=== PATIENT | male | born 1980 | race Caucasian/White ===

== ENCOUNTER 2017-08-16 19:27 | Emergency (ER) | payer SELFPAY ==
[~2017-08-16] VITALS: Ht 185.4 cm; Wt 116.3 kg
[~2017-08-16 19:27] MED LIST: MOTRIN800 MG PO; VALIUM5 MG PO
[2017-08-16] MEDS ORDERED: ROBITUSSIN AC,T10 ML PO (19:43)
[2017-08-16] MEDS ORDERED: VENTOLIN HFA18 GM IH (19:43)
[2017-08-16] MEDS ORDERED: LOSARTAN POTASS50 MG PO (20:05)
[2017-08-16] MEDS ORDERED: VENLAFAXINE HC150 M1 PO (20:06)
[2017-08-16] MEDS ORDERED: METOPROLOL SUCC50 MG PO (20:06)
[2017-08-16] MEDS ORDERED: AMLODIPINE BESYL5 MG PO (20:07)
[2017-08-16 20:30] VITALS: BP 153/105
== END 2017-08-16 20:32 | disposition home or self-care (01) ==
LOC: EME 19:27
DX: J18.0 Bronchopneumonia, unspecified organism (principal); R09.81 Nasal congestion; J02.9 Acute pharyngitis, unspecified; H92.09 Otalgia, unspecified ear; I10 Essential (primary) hypertension; F17.200 Nicotine dependence, unspecified, uncomplicated
CPT/HCPCS: 99281; 99284; J1100

== ENCOUNTER 2017-10-12 21:49 | Emergency (ER) | payer OTHER ==
[~2017-10-12] VITALS: Ht 185.4 cm; Wt 109.9 kg
[~2017-10-12 21:49] MED LIST changes: +AMLODIPINE BESYL5 MG PO; +LOSARTAN POTASS50 MG PO; +METOPROLOL SUCC50 MG PO; +ROBITUSSIN AC,T10 ML PO; +VENLAFAXINE HC150 M1 PO; +VENTOLIN HFA18 GM IH
[2017-10-12] MEDS ORDERED: NORCO 5/3251 TABLET PO (22:58)
[2017-10-12] MEDS ORDERED: FLEXERIL10 MG PO (22:58)
[2017-10-12 23:12] VITALS: BP 145/90
== END 2017-10-12 23:13 | disposition home or self-care (01) ==
LOC: EME 21:49
DX: M62.830 Muscle spasm of back (principal)
CPT/HCPCS: 99281; 99284

== ENCOUNTER 2018-07-21 04:17 | Inpatient (IN) | payer OTHER ==
[~2018-07-21] VITALS: Ht 185.4 cm; Wt 109.3 kg
[~2018-07-21 04:17] MED LIST changes: +COZAAR50 MG PO; +FLEXERIL10 MG PO; -LOSARTAN POTASS50 MG PO; -METOPROLOL SUCC50 MG PO; +NORCO 5/3251 TABLET PO; +TOPROL XL50 MG PO
[2018-07-21 05:01] LABS: PTT 29.1 SEC (25-37)
[2018-07-21 05:03] LABS: ALBUMIN 4.4 g/dL (3.2-4.8); CHLORIDE 102 mEq/L (99-109); POTASSIUM 3.8 mEq/L (3.7-5.4); SODIUM 138 mEq/L (136-147)
[2018-07-21 05:05] LABS: GLUCOSE 95 mg/dL (70-99)
[2018-07-21 05:07] LABS: TOTAL BILIRUBIN 2.3 mg/dL (0.0-1.0)
[2018-07-21 05:08] LABS: ALKALINE PHOSPHATASE 298 IU/L (3-129); HEMATOCRIT 47.2 % (38.0-50.0); HEMOGLOBIN 16.2 G/DL (12.5-16.6); MCH 28.9 PG (29.0-34.0); MCHC 34.3 G/DL (30.0-36.0); MCV 84.1 FL (86-99); PLATELET COUNT 269 K/uL (156-360); RBC DIS.WIDTH-SD 39.8 % (39-53); RED BLOOD COUNT 5.61 M/uL (4.00-5.50); WHITE BLOOD COUNT 7.9 K/uL (4.1-10.2)
[2018-07-21 05:09] LABS: CREATININE 0.9 mg/dL (0.6-1.3); GFR ESTIMATE (CALCULATED) > 59 mL/min/ (58.99-99999); INTER. NORMALIZED RATIO 0.9
[2018-07-21 05:10] LABS: AST (GOT) 524 IU/L (2-34); UREA NITROGEN (BUN) 15 mg/dL (9-23)
[2018-07-21 05:12] LABS: ALT (GPT) 651 IU/L (3-49)
[2018-07-21 05:18] LABS: TROP-I INTERPRETATION NEGATIVE; TROPONIN-I < 0.01 ng/mL (0.0-0.30)
[2018-07-21 08:36] LABS: TROP-I INTERPRETATION NEGATIVE; TROPONIN-I < 0.01 ng/mL (0.0-0.30)
[2018-07-21 08:55] LABS: LIPASE 222 U/L (1.0-51.0)
[2018-07-21 09:21] LABS: ACETAMINOPHEN (TYLENOL) < 10 mcg/mL (10-30)
[2018-07-21 09:41] VITALS: BP 113/64; BP 13/64
[2018-07-21 10:00] LABS: TRIGLYCERIDES 75 MG/DL (Normal: <150)
[2018-07-21 10:14] LABS: C-REACTIVE PROTEIN 16.1 MG/L (0-10)
[2018-07-21] MEDS ORDERED: HYDROCHLOROTHIA25 MG PO (10:16)
[2018-07-21 10:20] LABS: HEPATITIS B SURFACE ANTIGEN Nonreactive; HEPATITIS C ANTIBODY Nonreactive
[2018-07-21 10:21] LABS: ANTI-HEPATITIS A VIRUS (IGM) Nonreactive
[2018-07-21 10:22] LABS: ANTI-HEPATITIS B CORE (IGM) Nonreactive
[2018-07-21 11:13] VITALS: BP 120/73
[2018-07-21] MEDS ORDERED: ADVIL200 M1 PO (11:53)
[2018-07-21] MEDS ORDERED: FLONASE16 G1 BOTH NARES (11:54)
[2018-07-21] MEDS ORDERED: NYQUIL PO (11:55)
[2018-07-21 14:14] LABS: TROP-I INTERPRETATION NEGATIVE; TROPONIN-I < 0.01 ng/mL (0.0-0.30)
[2018-07-21 15:57] VITALS: BP 125/81
[2018-07-21 18:26] LABS: BENZODIAZEPINES, URINE SCREEN Negative (200 ng/mL)
[2018-07-21 20:44] VITALS: BP 135/73
[2018-07-22] VITALS (7 sets, daily range): BP systolic 129–148; BP diastolic 55–82
[2018-07-22 06:35] LABS: INTER. NORMALIZED RATIO 1.1
[2018-07-22 06:38] LABS: PTT 30.6 SEC (25-37)
[2018-07-22 06:56] LABS: BASOPHIL (%) 0.9 % (0-1); EOSINOPHIL (%) 15.2 % (0-5); EOSINOPHIL COUNT 0.7 K/uL (0-0.3); HEMATOCRIT 43.2 % (38.0-50.0); IMMATURE GRANULOCYTE (%) 0.2 % (0.0-0.7); LYMPHOCYTE (%) 32.5 % (15-42); LYMPHOCYTE COUNT 1.5 K/uL (1.0-2.8); MCH 28.1 PG (29.0-34.0); MCHC 32.9 G/DL (30.0-36.0); MCV 85.5 FL (86-99); MONOCYTE (%) 10.3 % (3-12); MONOCYTE COUNT 0.5 K/uL (0-0.8); NEUTROPHIL (%) 40.9 % (45-76); NEUTROPHIL COUNT 1.9 K/uL (1.8-6.4); PLATELET COUNT 230 K/uL (156-360); RBC DIS.WIDTH-CV 13.2 % (11.8-14.6); RBC DIS.WIDTH-SD 41.2 % (39-53); RED BLOOD COUNT 5.05 M/uL (4.00-5.50)
[2018-07-22 06:57] LABS: HEMOGLOBIN 14.2 G/DL (12.5-16.6)
[2018-07-22 06:58] LABS: WHITE BLOOD COUNT 4.6 K/uL (4.1-10.2)
[2018-07-22 07:02] LABS: ALBUMIN 3.5 G/DL (3.2-4.8); ALKALINE PHOSPHATASE 193 IU/L (3-129); ALT (GPT) 341 IU/L (3-49); AST (GOT) 149 IU/L (2-34); CHLORIDE 107 MEQ/L (99-109); CREATININE 0.8 MG/DL (0.6-1.3); GFR ESTIMATE (CALCULATED) > 59 mL/min/ (58.99-99999); GLUCOSE 77 mg/dL (70-99); LIPASE 15 U/L (1.0-51.0); POTASSIUM 4.1 MEQ/L (3.7-5.4); SODIUM 140 MEQ/L (136-147); TOTAL PROTEIN 5.4 G/DL (6.4-8.3); UREA NITROGEN (BUN) 12 mg/dL (9-23)
[2018-07-23 07:56] VITALS: BP 134/75
[2018-07-23 09:26] LABS: ALKALINE PHOSPHATASE 197 IU/L (3-129); ALT (GPT) 319 IU/L (3-49); AST (GOT) 83 IU/L (2-34); CHLORIDE 102 MEQ/L (99-109); CREATININE 0.8 MG/DL (0.6-1.3); GFR ESTIMATE (CALCULATED) > 59 mL/min/ (58.99-99999); POTASSIUM 4.8 MEQ/L (3.7-5.4); SODIUM 139 MEQ/L (136-147); UREA NITROGEN (BUN) 8 mg/dL (9-23)
[2018-07-23 09:46] LABS: GLUCOSE 107 mg/dL (70-99); TOTAL BILIRUBIN 0.7 MG/DL (0.0-1.0); TOTAL PROTEIN 6.5 G/DL (6.4-8.3)
[2018-07-23 11:19] VITALS: BP 116/64
[2018-07-23] MEDS ORDERED: PANTOPRAZOLE SO40 MG PO (12:22)
[2018-07-23] MEDS ORDERED: OXYCODONE HCL5 MG PO (12:23)
[2018-07-25 22:47] LABS: ANTI-SMOOTH MUSCLE (Actin)+ <20 U (<20); MITOCHONDRIAL (M2) ANTIBODIES+ <=20.0 U (<=20.0)
== END 2018-07-23 13:55 | disposition home or self-care (01) | DRG 438 ==
LOC: EME 04:17 → EDOF 08:30 → 4SOUTH 08:30 → ENRESERV 08:30 → 4SOUTH 09:31
PROVIDERS: Emergency Medicine; Hospitalist; Internal Medicine Gastroenterology
DX: K85.90 Acute pancreatitis without necrosis or infection, unspecified (principal); K72.00 Acute and subacute hepatic failure without coma; Z77.21 Contact with and (suspected) exposure to potentially hazardous body fluids; W46.0XXA Contact with hypodermic needle, initial encounter; T39.395A Adverse effect of other nonsteroidal anti-inflammatory drugs [NSAID], initial encounter; F17.290 Nicotine dependence, other tobacco product, uncomplicated; G25.0 Essential tremor; I10 Essential (primary) hypertension; K64.9 Unspecified hemorrhoids; K73.9 Chronic hepatitis, unspecified; K75.81 Nonalcoholic steatohepatitis (NASH)
CPT/HCPCS: 71046; 71275; 74177; 74183; 76705; 80053; 80074; 80306 90; 83516 90; 83605; 83690; 84478; 84484; 85025; 85027; 85379; 85610; 85730; 86038; 86140; 86256 90; 87040; 93005; 99281; 99285; G0480; J2060; J2270; J2405; J3010; J7030; J7120; S0028